=== PATIENT | male | born 1990 | race Two or more races ===

== ENCOUNTER 2020-05-25 05:55 | Day surgery (SDC) | payer OTHER ==
[2020-05-25] MEDS ORDERED: ULTRACET PO (09:33)
== END 2020-05-25 11:00 | disposition home or self-care (01) ==
LOC: CIR.AMB 05:55
PROVIDERS: ATTEND Surgery
DX: L72.0 Epidermal cyst (principal); Z20.828 Contact with and (suspected) exposure to other viral communicable diseases